=== PATIENT | male | born 1970 | race Hispanic/Latino ===

== ENCOUNTER 2022-08-22 12:57 | Inpatient (IN) | payer BC, OTHER ==
[2022-08-22 13:40] LABS: #Basophils 0.1 10x3/uL (0.0-0.2); #Eosinphils 0.2 10x3/uL (0.0-0.5); #Neutrophils 11.5 10x3/uL (1.5-8.4); %Basophils 0.3 % (0.0-2.0); %Eosinophils 1.2 % (0.0-6.0); %Lymphocytes 12.2 % (18.0-47.0); %Monocytes 6.5 % (0.0-10.0); %Neutrophils 79.2 % (40.0-75.0); Hemoglobin 12.6 g/dL (13.5-17.5); Mean Corpuscular Hemoglobin 33.7 pg (27.0-33.0); Mean Corpuscular Volume 91.2 fl (81.2-95.1); Mean Platelet Volume 8.8 fl (7.4-10.4); Platelet Count 396 10x3/uL (150-450); RBC Distribution Width 11.3 % (11.5-14.5); Red Blood Cell (RBC) Count 3.74 10x6/uL (4.32-5.72); White Blood Cell (WBC) Count 14.6 10x3/uL (3.5-10.5)
[2022-08-22 13:51] LABS: ALT (SGPT) 11 U/L (8-55); AST (SGOT) 11 U/L (5-34); Albumin 3.7 g/dL (3.5-5.0); Alkaline Phosphatase 95 U/L (40-110); Anion Gap 14 mmol/L (10-20); BUN (Urea Nitrogen) 22 mg/dL (8.9-20.6); Calc. Creatinine Clearance 0 mL/min (70-130); Calcium 10.2 mg/dL (7.8-10.44); Carbon Dioxide 24 mmol/L (22-29); Chloride 97 mmol/L (98-107); Estimated GFR 91; Globulin 4.8 g/dL (2.4-3.5); Glucose 309 mg/dL (70-105); Potassium 4.1 mmol/L (3.5-5.1); Protein, Total 8.5 g/dL (6.0-8.3); Sodium 131 mmol/L (136-145)
[2022-08-22] MEDS ORDERED: Cefepime 2 GM VIAL ONE (14:03)
[2022-08-22] MEDS ORDERED: Vancomycin 1 GM VIAL ONE (15:03)
[2022-08-22] MEDS ORDERED: Dextrose 5% in Water 1,000 ML IV PRN (15:04)
[2022-08-22] MEDS ORDERED: Dextrose 50% Abboject 50 ML SYRINGE SLOW IVP PRN (15:04)
[2022-08-22] MEDS ORDERED: HYDROcodone/Acetaminophen 5/325 mg Tablet PO PRN (15:05)
[2022-08-22] MEDS ORDERED: Acetaminophen 325 MG TAB PO PRN (15:05)
[2022-08-22] MEDS ORDERED: Ondansetron ODT 4 MG TAB PO PRN (15:05)
[2022-08-22] MEDS ORDERED: Ondansetron PF 4 MG/2 ML Vial IVP PRN (15:05)
[2022-08-22] MEDS ORDERED: Senokot S 8.6-50 MG TAB PO PRN (15:05)
[2022-08-22 16:06] LABS: SARS-CoV-2 NAA Rapid Test Not Detected (NotDetected)
[2022-08-22] MEDS ORDERED: HYDROcodone/Acetaminophen 5/325 mg Tablet ONE (17:22)
[2022-08-22] MEDS ORDERED: Insulin Regular 300 UNITS/3 ML VIAL ONE (17:48)
[2022-08-22 20:15] LABS: Hemoglobin A1c 10.7 % (4.0-6.0)
[2022-08-22] MEDS: Sodium Chloride 0.9% 1,000 ML IV SCH (21:34)
[2022-08-22] MEDS: Gabapentin 300 MG CAP PO SCH (21:37)
[2022-08-22] MEDS: Famotidine 20 MG TAB PO SCH (21:37)
[2022-08-22] MEDS: HumaLOG 300 UNITS/3 ML VIAL SC PRN (21:41)
[2022-08-22 22:06] VITALS: BMI 29.1
[2022-08-23] MEDS: Cefepime 1 GM in Sodium Chloride 0.9% 100 ML IVPB SCH ×2 (01:35→13:07)
[2022-08-23] MEDS: Vancomycin 1.5 GRAM/300 ML BAG 1.5 GM in Premix Bag 1 BAG IVPB SCH ×2 (04:00→14:51)
[2022-08-23 04:07] LABS: #Eosinphils 0.2 10x3/uL (0.0-0.5); #Monocytes 0.9 10x3/uL (0.0-1.1); #Neutrophils 9.1 10x3/uL (1.5-8.4); %Basophils 0.2 % (0.0-2.0); %Eosinophils 1.5 % (0.0-6.0); %Lymphocytes 15.4 % (18.0-47.0); %Monocytes 7.3 % (0.0-10.0); %Neutrophils 75.2 % (40.0-75.0); Hemoglobin 10.9 g/dL (13.5-17.5); Mean Corpuscular HGB CONC 36.5 g/dL (32.0-36.0); Mean Corpuscular Volume 90.6 fl (81.2-95.1); Mean Platelet Volume 8.5 fl (7.4-10.4); Platelet Count 348 10x3/uL (150-450); RBC Distribution Width 11.2 % (11.5-14.5); White Blood Cell (WBC) Count 12.1 10x3/uL (3.5-10.5)
[2022-08-23 04:16] LABS: Anion Gap 14 mmol/L (10-20); BUN (Urea Nitrogen) 18 mg/dL (8.9-20.6); Calc. Creatinine Clearance 169 mL/min (70-130); Calcium 8.8 mg/dL (7.8-10.44); Carbon Dioxide 21 mmol/L (22-29); Chloride 102 mmol/L (98-107); Estimated GFR 111; Glucose 206 mg/dL (70-105); Potassium 3.8 mmol/L (3.5-5.1); Sodium 133 mmol/L (136-145)
[2022-08-23] MEDS: HumaLOG 300 UNITS/3 ML VIAL SC PRN ×3 (06:11→22:02)
[2022-08-23] MEDS: Sodium Chloride 0.9% 1,000 ML IV SCH (06:54)
[2022-08-23] MEDS: Famotidine 20 MG TAB PO SCH ×2 (08:26→21:16)
[2022-08-23] MEDS: Gabapentin 300 MG CAP PO SCH ×2 (12:06→21:16)
[2022-08-23] MEDS: Empagliflozin 10 MG TAB PO SCH (12:07)
[2022-08-24] MEDS: Cefepime 1 GM in Sodium Chloride 0.9% 100 ML IVPB SCH ×3 (01:30→13:12)
[2022-08-24] MEDS: Vancomycin 1.5 GRAM/300 ML BAG 1.5 GM in Premix Bag 1 BAG IVPB SCH ×2 (02:42→14:48)
[2022-08-24 04:54] LABS: Anion Gap 13 mmol/L (10-20); BUN (Urea Nitrogen) 15 mg/dL (8.9-20.6); Calc. Creatinine Clearance 163 mL/min (70-130); Calcium 8.8 mg/dL (7.8-10.44); Carbon Dioxide 23 mmol/L (22-29); Chloride 100 mmol/L (98-107); Estimated GFR 110; Glucose 204 mg/dL (70-105); Potassium 3.5 mmol/L (3.5-5.1); Sodium 132 mmol/L (136-145)
[2022-08-24 05:14] LABS: #Basophils 0.1 10x3/uL (0.0-0.2); #Eosinphils 0.2 10x3/uL (0.0-0.5); #Monocytes 0.9 10x3/uL (0.0-1.1); #Neutrophils 7.3 10x3/uL (1.5-8.4); %Basophils 0.5 % (0.0-2.0); %Eosinophils 2.2 % (0.0-6.0); %Lymphocytes 20.2 % (18.0-47.0); %Neutrophils 68.3 % (40.0-75.0); Hemoglobin 10.9 g/dL (13.5-17.5); Mean Corpuscular HGB CONC 37.2 g/dL (32.0-36.0); Mean Corpuscular Hemoglobin 33.7 pg (27.0-33.0); Mean Corpuscular Volume 90.7 fl (81.2-95.1); Mean Platelet Volume 8.7 fl (7.4-10.4); Platelet Count 373 10x3/uL (150-450); RBC Distribution Width 11.1 % (11.5-14.5); Red Blood Cell (RBC) Count 3.23 10x6/uL (4.32-5.72); White Blood Cell (WBC) Count 10.7 10x3/uL (3.5-10.5)
[2022-08-24] MEDS: HumaLOG 300 UNITS/3 ML VIAL SC PRN ×3 (05:49→17:11)
[2022-08-24] MEDS: Gabapentin 300 MG CAP PO SCH ×2 (09:35→20:35)
[2022-08-24] MEDS: Empagliflozin 10 MG TAB PO SCH (09:35)
[2022-08-24] MEDS: Famotidine 20 MG TAB PO SCH ×2 (09:35→20:35)
[2022-08-24 15:23] LABS: Vancomycin, Trough 9.6 ug/mL
[2022-08-25] MEDS: Cefepime 1 GM in Sodium Chloride 0.9% 100 ML IVPB SCH ×2 (02:26→15:30)
[2022-08-25] MEDS: VANCOMYCIN 1.75 GM/350 ML BAG 1.75 GM in Premix Bag 1 BAG IVPB SCH ×2 (03:15→17:02)
[2022-08-25 05:18] LABS: #Basophils 0.1 10x3/uL (0.0-0.2); #Eosinphils 0.4 10x3/uL (0.0-0.5); #Monocytes 0.9 10x3/uL (0.0-1.1); #Neutrophils 7.1 10x3/uL (1.5-8.4); %Basophils 0.5 % (0.0-2.0); %Eosinophils 3.2 % (0.0-6.0); %Lymphocytes 23.8 % (18.0-47.0); %Monocytes 7.8 % (0.0-10.0); %Neutrophils 63.6 % (40.0-75.0); Hemoglobin 11.3 g/dL (13.5-17.5); Mean Corpuscular HGB CONC 36.3 g/dL (32.0-36.0); Mean Corpuscular Volume 90.9 fl (81.2-95.1); Mean Platelet Volume 8.4 fl (7.4-10.4); Platelet Count 371 10x3/uL (150-450); RBC Distribution Width 11.2 % (11.5-14.5); Red Blood Cell (RBC) Count 3.42 10x6/uL (4.32-5.72); White Blood Cell (WBC) Count 11.2 10x3/uL (3.5-10.5)
[2022-08-25 05:19] LABS: Anion Gap 16 mmol/L (10-20); BUN (Urea Nitrogen) 18 mg/dL (8.9-20.6); Calc. Creatinine Clearance 149 mL/min (70-130); Calcium 9.3 mg/dL (7.8-10.44); Carbon Dioxide 22 mmol/L (22-29); Chloride 101 mmol/L (98-107); Estimated GFR 107; Glucose 129 mg/dL (70-105); Potassium 4.1 mmol/L (3.5-5.1); Sodium 135 mmol/L (136-145)
[2022-08-25] MEDS: Famotidine 20 MG TAB PO SCH ×2 (09:13→21:32)
[2022-08-25] MEDS: Empagliflozin 10 MG TAB PO SCH (09:13)
[2022-08-25] MEDS: Gabapentin 300 MG CAP PO SCH ×2 (09:13→21:32)
[2022-08-25] MEDS ORDERED: Lidocaine 1% PF 5 ML VIAL ONE (09:29)
[2022-08-25 14:08] LABS: Hemoglobin A1c 10.5 % (4.0-6.0)
[2022-08-25] MEDS ORDERED: VANCOMYCIN 1.75 GM/350 ML BAG ONE (16:57)
[2022-08-26] MEDS: Cefepime 1 GM in Sodium Chloride 0.9% 100 ML IVPB SCH (02:13)
[2022-08-26 02:35] LABS: Vancomycin, Trough 14.8 ug/mL
[2022-08-26 02:39] LABS: Anion Gap 15 mmol/L (10-20); BUN (Urea Nitrogen) 23 mg/dL (8.9-20.6); Calc. Creatinine Clearance 139 mL/min (70-130); Calcium 9.4 mg/dL (7.8-10.44); Carbon Dioxide 22 mmol/L (22-29); Chloride 103 mmol/L (98-107); Estimated GFR 105; Glucose 187 mg/dL (70-105); Potassium 4.1 mmol/L (3.5-5.1); Sodium 136 mmol/L (136-145)
[2022-08-26 03:05] LABS: #Basophils 0.1 10x3/uL (0.0-0.2); #Eosinphils 0.3 10x3/uL (0.0-0.5); #Monocytes 0.8 10x3/uL (0.0-1.1); #Neutrophils 7.3 10x3/uL (1.5-8.4); %Basophils 0.5 % (0.0-2.0); %Eosinophils 2.6 % (0.0-6.0); %Lymphocytes 21.9 % (18.0-47.0); %Monocytes 7.4 % (0.0-10.0); %Neutrophils 66.3 % (40.0-75.0); Hemoglobin 11.7 g/dL (13.5-17.5); Mean Corpuscular HGB CONC 36.9 g/dL (32.0-36.0); Mean Corpuscular Hemoglobin 33.5 pg (27.0-33.0); Mean Corpuscular Volume 90.8 fl (81.2-95.1); Mean Platelet Volume 8.4 fl (7.4-10.4); Platelet Count 383 10x3/uL (150-450); RBC Distribution Width 11.2 % (11.5-14.5); Red Blood Cell (RBC) Count 3.49 10x6/uL (4.32-5.72)
[2022-08-26] MEDS: VANCOMYCIN 1.75 GM/350 ML BAG 1.75 GM in Premix Bag 1 BAG IVPB SCH ×2 (03:31→14:52)
[2022-08-26] MEDS: HumaLOG 300 UNITS/3 ML VIAL SC PRN ×2 (06:03→20:47)
[2022-08-26] MEDS: Gabapentin 300 MG CAP PO SCH ×2 (11:28→20:47)
[2022-08-26] MEDS: Famotidine 20 MG TAB PO SCH ×2 (11:29→20:47)
[2022-08-26] MEDS: Empagliflozin 10 MG TAB PO SCH (11:29)
[2022-08-27] MEDS: VANCOMYCIN 1.75 GM/350 ML BAG 1.75 GM in Premix Bag 1 BAG IVPB SCH ×2 (05:03→16:16)
[2022-08-27] MEDS: Gabapentin 300 MG CAP PO SCH ×2 (09:19→20:41)
[2022-08-27] MEDS: Empagliflozin 10 MG TAB PO SCH (09:19)
[2022-08-27] MEDS: Famotidine 20 MG TAB PO SCH ×2 (09:19→20:42)
[2022-08-27 14:58] LABS: Vancomycin, Trough 22.6 ug/mL
[2022-08-27] MEDS: HumaLOG 300 UNITS/3 ML VIAL SC PRN (20:45)
[2022-08-27 21:19] LABS: Vancomycin, Random 12.2 ug/mL (See Comment)
[2022-08-27] MEDS ORDERED: VANCOMYCIN 1.25 GM/250 ML BAG 1.25 GM in Premix Bag 1 BAG IVPB SCH (22:00)
[2022-08-28] MEDS: VANCOMYCIN 1.25 GM/250 ML BAG 1.25 GM in Premix Bag 1 BAG IVPB SCH ×3 (02:36→22:38)
[2022-08-28] MEDS: Famotidine 20 MG TAB PO SCH ×2 (10:08→22:37)
[2022-08-28] MEDS: Empagliflozin 10 MG TAB PO SCH (10:09)
[2022-08-28] MEDS: Gabapentin 300 MG CAP PO SCH ×2 (10:09→22:37)
[2022-08-28] MEDS ORDERED: VANCOMYCIN 1.25 GM/250 ML BAG ONE (11:49)
[2022-08-28] MEDS: metroNIDAZOLE 500 MG TAB PO SCH ×2 (15:16→22:37)
[2022-08-29] MEDS: HumaLOG 300 UNITS/3 ML VIAL SC PRN (06:40)
[2022-08-29] MEDS: Empagliflozin 10 MG TAB PO SCH (08:23)
[2022-08-29] MEDS: Famotidine 20 MG TAB PO SCH ×2 (08:25→21:59)
[2022-08-29] MEDS: Gabapentin 300 MG CAP PO SCH ×2 (08:25→21:59)
[2022-08-29] MEDS: metroNIDAZOLE 500 MG TAB PO SCH ×3 (08:25→21:59)
[2022-08-29 10:15] LABS: Vancomycin, Trough 12.9 ug/mL
[2022-08-29 11:27] LABS: #Basophils 0.1 10x3/uL (0.0-0.2); #Eosinphils 0.3 10x3/uL (0.0-0.5); #Monocytes 0.7 10x3/uL (0.0-1.1); #Neutrophils 7.2 10x3/uL (1.5-8.4); %Basophils 0.8 % (0.0-2.0); %Eosinophils 2.5 % (0.0-6.0); %Lymphocytes 22.7 % (18.0-47.0); %Monocytes 6.3 % (0.0-10.0); %Neutrophils 66.1 % (40.0-75.0); Hemoglobin 12.2 g/dL (13.5-17.5); Mean Corpuscular HGB CONC 36.1 g/dL (32.0-36.0); Mean Corpuscular Hemoglobin 33.3 pg (27.0-33.0); Mean Corpuscular Volume 92.3 fl (81.2-95.1); Mean Platelet Volume 8.7 fl (7.4-10.4); Platelet Count 431 10x3/uL (150-450); RBC Distribution Width 11.7 % (11.5-14.5); Red Blood Cell (RBC) Count 3.66 10x6/uL (4.32-5.72); White Blood Cell (WBC) Count 10.9 10x3/uL (3.5-10.5)
[2022-08-29 11:38] LABS: ALT (SGPT) 12 U/L (8-55); AST (SGOT) 19 U/L (5-34); Albumin 3.4 g/dL (3.5-5.0); Alkaline Phosphatase 74 U/L (40-110); Anion Gap 13 mmol/L (10-20); BUN (Urea Nitrogen) 26 mg/dL (8.9-20.6); Bilirubin, Total 0.5 mg/dL (0.2-1.2); Calc. Creatinine Clearance 142 mL/min (70-130); Calcium 9.7 mg/dL (7.8-10.44); Carbon Dioxide 25 mmol/L (22-29); Chloride 102 mmol/L (98-107); Estimated GFR 105; Globulin 4.8 g/dL (2.4-3.5); Glucose 164 mg/dL (70-105); Potassium 4.7 mmol/L (3.5-5.1); Protein, Total 8.2 g/dL (6.0-8.3); Sodium 135 mmol/L (136-145)
[2022-08-29] MEDS: VANCOMYCIN 1.25 GM/250 ML BAG 1.25 GM in Premix Bag 1 BAG IVPB SCH ×2 (12:46→22:00)
[2022-08-29] MEDS: metFORMIN 500 MG TAB PO SCH (16:50)
[2022-08-30] MEDS: HumaLOG 300 UNITS/3 ML VIAL SC PRN ×2 (06:32→20:33)
[2022-08-30] MEDS: metroNIDAZOLE 500 MG TAB PO SCH ×3 (08:04→20:28)
[2022-08-30] MEDS: Famotidine 20 MG TAB PO SCH ×2 (08:04→20:28)
[2022-08-30] MEDS: Gabapentin 300 MG CAP PO SCH ×2 (08:05→20:28)
[2022-08-30] MEDS: metFORMIN 500 MG TAB PO SCH (08:05)
[2022-08-30] MEDS: Empagliflozin 10 MG TAB PO SCH (08:06)
[2022-08-30] MEDS: VANCOMYCIN 1.25 GM/250 ML BAG 1.25 GM in Premix Bag 1 BAG IVPB SCH ×2 (11:59→22:46)
[2022-08-31] MEDS: HumaLOG 300 UNITS/3 ML VIAL SC PRN ×2 (05:31→11:52)
[2022-08-31] MEDS: Famotidine 20 MG TAB PO SCH (09:40)
[2022-08-31] MEDS: Empagliflozin 10 MG TAB PO SCH (09:41)
[2022-08-31] MEDS: Gabapentin 300 MG CAP PO SCH (09:41)
[2022-08-31] MEDS: metroNIDAZOLE 500 MG TAB PO SCH ×2 (09:41→16:43)
[2022-08-31] MEDS: VANCOMYCIN 1.25 GM/250 ML BAG 1.25 GM in Premix Bag 1 BAG IVPB SCH (11:31)
[2022-08-31 23:16] VITALS: TEMP 98.4
[2022-08-31 23:24] VITALS: BP 122/76
== END 2022-08-31 16:41 | disposition home or self-care (01) | DRG 872 ==
LOC: CSHERS 12:57 → CSHTELE 14:21
PROVIDERS: ADMIT Family Medicine; ATTEND Internal Medicine
PROC: 0HDNXZZ Extraction of Left Foot Skin, External Approach (ICD-10-PCS; 2022-08-23)
PROC: 02HV33Z Insertion of Infusion Device into Superior Vena Cava, Percutaneous Approach (ICD-10-PCS; principal; 2022-08-25)
PROC: B5181ZA Fluoroscopy of Superior Vena Cava using Low Osmolar Contrast, Guidance (ICD-10-PCS; 2022-08-25)
PROC: B548ZZA Ultrasonography of Superior Vena Cava, Guidance (ICD-10-PCS; 2022-08-25)
DX: A41.02 Sepsis due to Methicillin resistant Staphylococcus aureus (principal); L03.116 Cellulitis of left lower limb; E87.1 Hypo-osmolality and hyponatremia; M86.8X7 Other osteomyelitis, ankle and foot; E11.42 Type 2 diabetes mellitus with diabetic polyneuropathy; E11.621 Type 2 diabetes mellitus with foot ulcer; L97.529 Non-pressure chronic ulcer of other part of left foot with unspecified severity; D64.9 Anemia, unspecified; E11.65 Type 2 diabetes mellitus with hyperglycemia; E11.628 Type 2 diabetes mellitus with other skin complications; E11.69 Type 2 diabetes mellitus with other specified complication; I11.9 Hypertensive heart disease without heart failure; Z20.822 Contact with and (suspected) exposure to COVID-19; Z79.899 Other long term (current) drug therapy; Z98.890 Other specified postprocedural states
CPT/HCPCS: 36415; 36416; 36569; 80048; 80053; 80202; 82565; 83036; 83605; 85025; 85652; 86140; 87040; 87070; 87077; 87186; 87205; 87811; 94760; 96374; 96375; 97139; C1751; J0692; J1650; J1815; J3370; J3490; J7050; U0002